=== PATIENT | female | born 1950 | race Caucasian/White ===

== ENCOUNTER → 2018-05-15 15:48 | Outpatient (CLI) | payer OTHER, SELFPAY ==
--- NOTE | 2018-05-15 | DI.MG.S_ITS ---
BILATERAL DIGITAL SCREENING MAMMOGRAM 3D/2D WITH CAD: 05/15/2018 CLINICAL: Routine screening. Comparison is made to exam dated: 04/02/2014 mammogram - [facility]. The tissue of both breasts is heterogeneously dense. This may lower the sensitivity of mammography. Current study was also evaluated with a Computer Aided Detection (CAD) system. No significant masses, calcifications, or other findings are seen in either breast. There has been no significant interval change. IMPRESSION: NEGATIVE There is no mammographic evidence of malignancy. A 1 year screening mammogram is recommended. This exam was interpreted at Station ID: [id number]. NOTE: For mammograms, a report in lay terms will be sent to the patient. Approximately 15% of breast malignancies will not be visualized mammographically. In the management of a palpable breast mass, a negative mammogram must not discourage biopsy of a clinically suspicious lesion. Electronically Signed By: Benton can/lindsey:05/16/2018 17:56:02 letter sent: Normal Exam ACR BI-RADS Category 1: Negative 3341F
== END ==
PROVIDERS: Family Provider Physician Assistant; PCP Physician Assistant; Visit Provider Family Medicine
DX: Z12.31 Encounter for screening mammogram for malignant neoplasm of breast (principal)
CPT/HCPCS: 77063; 77067

== ENCOUNTER → 2018-08-03 13:52 | Outpatient (CLI) | payer OTHER, SELFPAY ==
--- NOTE | 2018-08-03 13:54 | DI.MRI.S_ITS ---
PROCEDURE: MR SHOULDER RT WO CON INDICATIONS: RIGHT SHOULDER PAIN TECHNIQUE: Noncontrast oblique coronal T2 fast spin echo with fat saturation, oblique sagittal T1 spin echo and T2 fast spin echo with fat saturation, axial T1 spin echo and T2 fast spin echo with fat saturation through the shoulder. COMPARISON: None. FINDINGS: Image quality: Excellent. Rotator cuff: Partial thickness bursal sided tear involving the junction of the footplate and critical zone of the supraspinatus tendon image 9 series 10. There is also infraspinatus tendinopathy and partial thickness probably articular sided slitlike tear on image 9 series 10. Teres minor appears intact. Subscapularis tendinopathy with interstitial tearing and low-grade partial-thickness articular sided tear. No atrophy of the rotator cuff musculature although there is mild fatty infiltration of the subscapularis and infraspinatus muscles. Bones and bursae: No bone marrow contusions or fractures. Presumed degenerative cystic changes seen at the posterior aspect of the greater tuberosity and the base of the lesser tuberosity. Moderate acromioclavicular joint degeneration. The acromion demonstrates conventional anatomy, without an os acromiale. There is mild/moderate subacromial-subdeltoid fluid. Capsule and soft tissues: Posterior labrum demonstrates irregular appearance with possible intrasubstance T2 hyperintensity for example image 12 series 6. Of note, differential includes prominent posterior synovial fold and it is unclear if there is significant segmental glenoid rim degeneration and spurring (to suggest microinstability). Therefore, please correlate clinically. The long head of the biceps tendon demonstrates normal location and morphology. The rotator interval appears normal, without fibrosis. The coracohumeral ligament is normal in thickness. IMPRESSION: Supraspinatus tendinopathy with partial thickness bursal sided tear. Adjacent mild to moderate subacromial/subdeltoid bursitis. Infraspinatus tendinopathy with small slitlike partial-thickness articular sided tear. Subscapularis partial thickness articular sided tear, and interstitial tearing. Irregularity of the posterior labrum which could reflect posterior labral tear although technically indeterminate and the differential includes posterior synovial fold (anatomic variant). Please correlate with exam findings. Mild fatty infiltration of the subscapularis and infraspinatus muscles without definite atrophy. Dictated by: Bryan Mcintosh M.D. on 08/05/2018 at 8:50 Approved by: Bryan Mcintosh M.D. on 08/05/2018 at 8:58
== END ==
PROVIDERS: PCP Physician Assistant; Visit Provider Family Medicine
DX: M25.511 Pain in right shoulder (principal); M75.111 Incomplete rotator cuff tear or rupture of right shoulder, not specified as traumatic; M75.51 Bursitis of right shoulder
CPT/HCPCS: 73221

== ENCOUNTER → 2018-10-24 13:03 | Outpatient (CLI) | payer OTHER, SELFPAY | PROVIDERS: PCP Physician Assistant; Visit Provider Family Medicine | DX: Z13.820 Encounter for screening for osteoporosis (principal); M81.0 Age-related osteoporosis without current pathological fracture; Z78.0 Asymptomatic menopausal state; E07.9 Disorder of thyroid, unspecified; Z82.62 Family history of osteoporosis | CPT/HCPCS: 77080 ==

== ENCOUNTER → 2019-09-23 10:57 | Outpatient (CLI) | payer OTHER, SELFPAY ==
--- NOTE | 2019-09-23 | DI.RAD.S_ITS ---
PROCEDURE: XR ELBOW RT MIN 3V INDICATIONS: RIGHT ELBOW PAIN TECHNIQUE: 3 views of the elbow were acquired. COMPARISON: None. FINDINGS: Bones: No fractures or dislocations. No suspicious bony lesions. Soft tissues: No elbow joint effusion. No suspicious soft tissue calcifications. IMPRESSION: Right elbow without acute osseous abnormalities. No significant degenerative changes. Dictated by: Evaristo Vela M.D. on 09/23/2019 at 12:57 Approved by: Evaristo Vela M.D. on 09/23/2019 at 12:58
--- NOTE | 2019-09-23 | DI.RAD.S_ITS ---
PROCEDURE: XR CERVICAL SPINE 2V OR 3V INDICATIONS: RIGHT ELBOW PAIN TECHNIQUE: 3 view(s) of the cervical spine were acquired. COMPARISON: [facility], , C-SPINE WITHOUT CONTRAST, 12/22/2014, 12:19. FINDINGS: Bones: No acute fractures or dislocations to the T4 level. The lateral masses of C1 appear intact on the odontoid view. C1-C2 relationship is preserved. Straightening of cervical lordosis with mild grade 1 anterolisthesis C4 and C5 and mild grade 1 anterolisthesis of C7 on T1. Findings may be related to combination of patient positioning and moderate associated spondylitic changes. There is disc space narrowing throughout the cervical spine but most pronounced at C5-6 and C6-7. Degenerative endplate changes and endplate osteophyte formation is noted throughout the mid and lower cervical spine. Multilevel facet arthrosis also noted. No suspicious bony lesions. Soft tissues: No prevertebral soft tissue swelling. IMPRESSION: 1. Multilevel cervical spondylosis most pronounced at C5-6 and C6-7. No acute osseous abnormalities identified. 2. Mild anterolisthesis of C4 on C5 as well as C7 on T1 which is favored to represent combination of patient positioning and associated spondylitic changes. Dictated by: Evaristo Vela M.D. on 09/23/2019 at 12:46 Approved by: Evaristo Vela M.D. on 09/23/2019 at 12:55
--- NOTE | 2019-09-23 | DI.RAD.S_ITS ---
PROCEDURE: XR THORACIC SPINE 3V INDICATIONS: RIGHT ELBOW PAIN TECHNIQUE: 3 views of the thoracic spine were acquired. COMPARISON: None. FINDINGS: Bones: No fractures or dislocations. No suspicious bony lesions. 12 pairs of ribs are noted, and appear intact where visualized. Mild multilevel thoracic spine changes. No acute compression fracture of the vertebral bodies. Soft tissues: No paravertebral stripe thickening. IMPRESSION: Mild thoracic spondylosis. Dictated by: Evaristo Vela M.D. on 09/23/2019 at 12:56 Approved by: Evaristo Vela M.D. on 09/23/2019 at 12:56
== END ==
PROVIDERS: PCP Physician Assistant; Visit Provider Physician Assistant Medical
DX: M25.521 Pain in right elbow (principal); M47.22 Other spondylosis with radiculopathy, cervical region; M43.12 Spondylolisthesis, cervical region; M47.24 Other spondylosis with radiculopathy, thoracic region
CPT/HCPCS: 72040; 72072; 73080

== ENCOUNTER → 2020-04-28 12:48 | Outpatient (CLI) | payer MEDICARE, SELFPAY ==
--- NOTE | 2020-04-28 | DI.MG.S_ITS ---
BILATERAL DIGITAL SCREENING MAMMOGRAM 3D/2D WITH CAD: 04/28/2020 CLINICAL: Routine screening. Comparison is made to exams dated: 04/02/2014 [facility] The tissue of both breasts is heterogeneously dense. This may lower the sensitivity of mammography. Current study was also evaluated with a Computer Aided Detection (CAD) system. No significant masses, calcifications, or other findings are seen in either breast. There has been no significant interval change. IMPRESSION: NEGATIVE There is no mammographic evidence of malignancy. A 1 year screening mammogram is recommended. This exam was interpreted at Station ID: [id number]. NOTE: For mammograms, a report in lay terms will be sent to the patient. Approximately 15% of breast malignancies will not be visualized mammographically. In the management of a palpable breast mass, a negative mammogram must not discourage biopsy of a clinically suspicious lesion. Electronically Signed By: Evaristo valenzuela/lindsey:04/28/2020 17:00:08 letter sent: Normal Exam ACR BI-RADS Category 1: Negative 3341F
== END ==
PROVIDERS: PCP Physician Assistant; Referring Provider Physician Assistant; Visit Provider Physician Assistant
DX: Z12.31 Encounter for screening mammogram for malignant neoplasm of breast (principal)
CPT/HCPCS: 77063; 77067

== ENCOUNTER → 2020-12-09 12:22 | Outpatient (CLI) | payer MEDICARE, SELFPAY ==
--- NOTE | 2020-12-09 | DI.US.S_ITS ---
PROCEDURE: US SOFT TISSUE HEAD AND NECK INDICATIONS: Localized swelling, mass and lump OSTEOPOROSIS TECHNIQUE: Real-time scanning was performed of the neck region of interest, with image documentation. COMPARISON: None. FINDINGS: The patient reports palpable neck abnormality on the right having persisted over several months. In the current area of clinical concern, localized by the patient, there is a lymph node measuring 0.6 x 1.3 x 1.6 cm medial to the carotid artery. IMPRESSION: Normal size single lymph node identified as the cause of current patient clinical concern. This measures up to 6 x 13 x 16 mm. Dictated by: Kenrick Munoz M.D. on 12/09/2020 at 13:37 Approved by: Kenrick Munoz M.D. on 12/09/2020 at 13:38
== END ==
PROVIDERS: PCP Physician Assistant; Referring Provider Physician Assistant; Visit Provider Physician Assistant
DX: R22.1 Localized swelling, mass and lump, neck (principal); M81.0 Age-related osteoporosis without current pathological fracture; Z78.0 Asymptomatic menopausal state; E07.9 Disorder of thyroid, unspecified; Z82.62 Family history of osteoporosis
CPT/HCPCS: 76536; 77080

== ENCOUNTER → 2022-04-26 12:25 | Outpatient (CLI) | payer MEDICARE, SELFPAY ==
--- NOTE | 2022-04-26 12:26 | DI.US.S_ITS ---
PROCEDURE: US PELVIC COMPLETE INDICATIONS: POSTMENOPAUSAL BLEEDING TECHNIQUE: Real-time transvaginal scanning was performed of the pelvic organs, with image documentation. COMPARISON: None. FINDINGS: Uterus: Uterus is neutral in position and normal in size at 5.0 x 3.5 x 2.2 cm. The myometrium is homogeneous. The endometrium measures 10 mm combined thickness. Possible mass versus complex nabothian cyst involving the cervix measuring 1.3 cm. Ovaries: Normal right ovary measuring 1.8 x 1.2 x 1.8 cm. Left ovary is been removed. Other: No pathologic free abdominal or pelvic fluid. IMPRESSION: 1. Abnormal thickened endometrial complex measuring 10 mm. Endometrial biopsy is recommended. 2. Possible mass versus complex nabothian cyst within the cervix measuring 1.3 cm. 6 week follow-up ultrasound is recommended to assess for interval changes and/or resolution. We strive to produce accurate, complete, and clear reports of imaging services. To assist us in improving patient care, this report was composed using standard report templates and voice recognition software. Therefore, it may contain abnormal punctuation, insertions and/or omissions. Occasional wrong-word or sound-alike substitutions may occur. Though we review the report and make efforts to correct it, we do recommend that the report be read carefully in proper context to recognize any text inaccuracies. Dictated by: Raleigh MUNIZ Interpreted: Kei Rios MD on 04/26/2022 at 17:01 Transcribed by: NAVA on 04/26/2022 at 17:03 Approved by: Kei Rios M.D. on 04/26/2022 at 17:24
== END ==
PROVIDERS: PCP Physician Assistant; Referring Provider Obstetrics & Gynecology; Visit Provider Obstetrics & Gynecology
DX: N95.0 Postmenopausal bleeding (principal); R93.89 Abnormal findings on diagnostic imaging of other specified body structures
CPT/HCPCS: 76830; 76856

== ENCOUNTER → 2022-05-16 10:05 | Outpatient (CLI) | payer MEDICARE, SELFPAY ==
[2022-05-16 20:07] LABS: Add Manual Diff / Slide Review NO; Basophils Absolute Auto 0 /uL (0-100); Basophils Percent Auto 0.7 % (0-2); Eosinophils Absolute Auto 100 /uL (0-450); Eosinophils Percent Auto 1.3 % (2-4); Hematocrit 38.7 % (36-46); Hemoglobin 13.3 g/dL (12.0-16.0); Lymphocytes Absolute Auto 1600 /uL (1100-4500); Lymphocytes Percent Auto 23.4 % (25-40); Mean Corpuscular HGB Conc 34.3 % (30-36); Mean Corpuscular Hemoglobin 33.4 PG (26-34); Mean Corpuscular Volume 97.5 fL (80-100); Monocytes Absolute Auto 600 /uL (0-900); Monocytes Percent Auto 8.7 % (3-14); Neutrophils Absolute Auto 4600 /uL (1500-7000); Neutrophils Percent Auto 65.9 % (50-75); Platelet Count 273 X10^3/uL (150-400); Red Blood Cell Count 3.97 X10^6/uL (4.0-5.2); Red Cell Distribution Width 13.6 % (11.6-14.8); White Blood Cell Count 6.9 X10^3/uL (4.5-11.0)
[2022-05-16 20:14] LABS: Alanine Aminotransferase 20 IU/L (<35); Albumin 3.9 g/dL (3.5-5.0); Albumin Globulin Ratio 1.9 (1.0-2.8); Alkaline Phosphatase 53 U/L (38-126); Aspartate Aminotransferase 34 IU/L (14-36); BUN Creatinine Ratio 13.7 (6-22); Bilirubin Total 0.5 mg/dL (0.2-1.3); Blood Urea Nitrogen 13 mg/dL (7-17); Calcium 9.2 mg/dL (8.4-10.2); Carbon Dioxide 26 mmol/L (22-32); Chloride 104 mmol/L (98-107); Cholesterol 197 mg/dL (140-199); Estimated Glomerular Filt Rate > 60 mL/min (>60); Globulin 2.1 g/dL (1.7-4.1); Glucose 84 mg/dL (80-110); HDL Cholesterol 94 mg/dL (40-60); HEMOLYSIS < 15 (0-50); LDL Cholesterol Calculated 94 mg/dL (<100); Potassium 4.2 mmol/L (3.4-5.1); Sodium 136 mmol/L (137-145); Triglycerides 43 mg/dL (35-150)
[2022-05-16 20:42] LABS: TSH w/ Reflex to FT4 0.93 uIU/mL (0.47-4.68)
== END ==
PROVIDERS: PCP Physician Assistant; Visit Provider Physician Assistant
DX: E03.9 Hypothyroidism, unspecified (principal); E78.00 Pure hypercholesterolemia, unspecified; Z79.899 Other long term (current) drug therapy
CPT/HCPCS: 80053; 80061; 84443; 85025

== ENCOUNTER → 2022-05-29 13:20 | Outpatient (CLI) | payer MEDICARE, SELFPAY ==
[2022-05-29 14:00] LABS: COVID19 -Nasal RAPID Negative (Negative)
== END ==
PROVIDERS: PCP Physician Assistant; Visit Provider Surgery
DX: Z01.812 Encounter for preprocedural laboratory examination (principal); Z20.822 Contact with and (suspected) exposure to COVID-19
CPT/HCPCS: 87635

== ENCOUNTER 2022-05-29 13:23 | Day surgery (SDC) | payer MEDICARE, SELFPAY ==
[2022-05-29] VITALS (7 sets, daily range): BP systolic 114–134; BP diastolic 61–80; PULSE 50–62; RESP 10–18; TEMP 36.8–37; O2SAT 97–100; BMI 20.2
--- NOTE | 2022-05-29 | PATH_ITS ---
[facility] Accession Number: [id number] . 01 Material submitted: . endometrium - ENDOMETRIAL CURETTINGS . 01 Diagnosis: Endometrium, Curettage: Scant superficial fragments of inactive endometrium with breakdown changes. Negative for significant atypia and malignancy. MRV 06/01/2022 1459 Local . 01 Electronically signed: . Giovana Valadez MD, Pathologist NPI- [id number] . 01 Gross description: . ENDOMETRIAL CURETTINGS: Received in formalin are minute fragments of mucoid and hemorrhagic material measuring 2.0 x 0.1 x 0.1 cm in aggregate. Submitted in toto in 1 cassette. /CPE 05/30/2022 0504 Local . 01 Pathologist provided ICD-10: N95.0 . 01 CPT . 110394 Specimen Comment: A courtesy copy of this report has been sent to [facility] Pathology Performed at: 01 [facility] [address] [place] [address], [place], [place] [id number] MD Dorian Pedraza MD Phone: [phone]
[2022-05-29] MEDS: LACTATED RINGERS 1,000 ML 42 ML IV (14:30)
--- NOTE | 2022-05-29 15:40 | SUR.OPER ---
Lithotomy on padded OR bed, head on pillow, arms secured on padded arm boards at <90 degrees abduction. Legs secured in padded yellow fins stirrups.
--- NOTE | 2022-05-29 16:06 | P.HPOB_ITS ---
History of Present Illness History of Present Illness Reason for admission: other (Postmenopausal bleeding) Narrative: Laura Sevilla is a 71 [place] [address] Gynecology Visit Signed Patient: Laura Sevilla MR#: [id number] : 1950 Acct:[id number] Age/Sex: 71 / F Date of Service:?04/26/22 Loc: [facility]? 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 Bleeding has subsided, but cramping remains. Tobacco Status Smoking Status: Never smoker Last Menstural Cycle & Details Other Menstrual Period: Postmenopausal Allergies No Known Drug Allergies Allergy (Verified 04/26/22 11:19) Medications albuterol sulfate 90 mcg/actuation aerosol inhaler (Ventolin HFA) 2 puff inhalation Q6H PRN 03/24/21 [History Confirmed 04/26/22] estradiol 0.01% (0.1 mg/gram) vaginal cream (Estrace) 1 g vaginal 2XW 03/24/21 [History Confirmed 04/26/22] dextroamphetamine-amphetamine 5 mg tablet (Adderall) 5 mg PO DAILY 10/28/21 [History Confirmed 04/26/22] bupropion HCl 150 mg 24 hr tablet, extended release See Rx Instructions .Route .COMPLEX #30 tabs 01/06/22 [Rx Confirmed 04/26/22] levothyroxine 25 mcg tablet See Rx Instructions .Route .COMPLEX #30 tabs 01/06/22 [Rx Confirmed 04/26/22] estradiol 1 mg tablet 0.5 mg PO .twice weekly 04/26/22 [History Confirmed 04/26/22] Vitals ? 04/26/2211:25 Height 5 ft 3 in Weight 114 lb 7 oz BMI 20.2 BP 128/66 Blood Pressure Location Rt brachial Position Sitting Respiration 16 Pulse 54 L Pulse Source Monitor Pulse Oximetry (%) 98 Oxygen Delivery Method room air HPI Chief Complaint Chief Complaint: Postmenopausal bleeding HPI Details: 71-year-old female presents for postmenopausal bleeding. Five days ago she had some bright red vaginal spotting, the next day it increased to some light bleeding, needing a panty liner for the blood.? Bleeding was accompanied by cramping at that time.? She has continued with some light cramping. 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 No history of abnormal Pap smear. History of unilateral salpingo oophorectomy for ectopic , through lower abdominal incision ON LICENSE OF [facility] Medical History (Updated 05/17/22 @ 17:12 by Roseline Herrera PA-C) Abnormal chest xray (~1960) Actinic keratosis ADHD Allergies Anemia (~1974) Nobles's esophagus Chicken pox Depression Eczema Femur fracture (~1979) Foot pain (~2017) GERD (gastroesophageal reflux disease) Greater trochanteric bursitis of left hip Headache Hemorrhoid Herpes History of basal cell carcinoma History of ectopic Measles Osteoarthritis (~2011) Osteopenia (~2017) PTSD (post-traumatic stress disorder) Sleep apnea (~2016) Surgical History (Updated 05/14/22 @ 21:24 by Milvia Saini) Anesthesia History of appendectomy History of foot surgery (~2018) History of hand surgery History of thoracic surgery S/P unilateral salpingo-oophorectomy Family History (Updated 05/14/22 @ 21:28 by Milvia Saini) Father History of heart disease Mental health problem Mother History of heart disease Brother Prostate cancer Multiple sclerosis Hyperlipidemia Alcoholism Depression Drug addiction Mental health problem Melanoma Grandmother History of heart disease Grandfather Appendicitis Social History household members: significant other Smoking Status: Never smoker alcohol intake: current Meds Home Medications and Allergies Home Medications Medication Instructions Recorded Confirmed Type estradiol 0.01% (0.1 mg/gram) 1 g vaginal 2XW 03/24/21 05/29/22 History vaginal cream (Estrace) dextroamphetamine-amphetamine 5 mg 5 mg PO DAILY PRN ADHD 10/28/21 05/29/22 His tory tablet (Adderall) hydrocodone 5 mg-acetaminophen 325 0.5 tab PO Q8H PRN pain #10 tabs 05/23/22 05/29/22 Rx mg tablet bupropion HCl 150 mg 24 hr tablet, 150 mg PO DAILY 05/29/22 05/29/22 History extended release levothyroxine 25 mcg tablet 25 mcg PO DAILY 05/29/22 05/29/22 History Allergies Allergy/AdvReac Type Severity Reaction Status Date / Time No Known Drug Allergies Allergy Verified 05/29/22 13:55 Exam Vital Signs (past 8 hours): - 05/29/22 14:24 Temperature 98.2 F Pulse Rate 58 L Respiratory Rate 18 Blood Pressure 119/72 Pulse Oximetry 97 Oxygen Delivery Method Room Air Oxygen Delivery Method Room Air Assessment & Plan Time Spent With Patient Critical Care time: I spent a total of [] minutes of critical care time on this patient's care today; this time is exclusive of procedural time.
--- NOTE | 2022-05-29 16:07 | P.HPOB_ITS ---
History of Present Illness History of Present Illness Narrative: Laura Sevilla is a 71 year old female Laura Sevilla is a 71 yo female being admitted for D&C, hysteroscopy for further evaluation of postmenopausal bleeding. She had some bright red vaginal spotting, then next day some light bleeding. No further bleeding after that, but she has continued with uterine type cramping. Office endometrial biopsy was unsuccessful due to a stenotic cervix. Ultrasound showed a 10 mm endometrium, thus I recommended further evaluation with D and C, hysteroscopy. 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 No history of abnormal Pap smear. History of unilateral salpingo oophorectomy for ectopic , through lower abdominal incision [facility] Medical History (Updated 05/29/22 @ 16:11 by Trini Mclaughlin MD) Abnormal chest xray (~1960) Actinic keratosis ADHD Allergies Anemia (~1974) Nobles's esophagus Chicken pox Depression Eczema Femur fracture (~1979) Foot pain (~2017) GERD (gastroesophageal reflux disease) Greater trochanteric bursitis of left hip Headache Hemorrhoid Herpes History of basal cell carcinoma History of ectopic Measles Osteoarthritis (~2011) Osteopenia (~2018) PTSD (post-traumatic stress disorder) Sleep apnea (~2016) Surgical History (Updated 05/14/22 @ 21:24 by Milvia Saini) Anesthesia History of appendectomy History of foot surgery (~2018) History of hand surgery History of thoracic surgery S/P unilateral salpingo-oophorectomy Family History (Updated 05/14/22 @ 21:28 by Milvia Saini) Father History of heart disease Mental health problem Mother History of heart disease Brother Prostate cancer Multiple sclerosis Hyperlipidemia Alcoholism Depression Drug addiction Mental health problem Melanoma Grandmother History of heart disease Grandfather Appendicitis Social History household members: significant other Smoking Status: Never smoker alcohol intake: current Meds Home Medications and Allergies Home Medications Medication Instructions Recorded Confirmed Type estradiol 0.01% (0.1 mg/gram) 1 g vaginal 2XW 03/24/21 05/29/22 History vaginal cream (Estrace) dextroamphetamine-amphetamine 5 mg 5 mg PO DAILY PRN ADHD 10/28/21 05/29/22 History tablet (Adderall) hydrocodone 5 mg-acetaminophen 325 0.5 tab PO Q8H PRN pain #10 tabs 05/23/22 05/29/22 Rx mg tablet bupropion HCl 150 mg 24 hr tablet, 150 mg PO DAILY 05/29/22 05/29/22 History extended release levothyroxine 25 mcg tablet 25 mcg PO DAILY 05/29/22 05/29/22 History Allergies Allergy/AdvReac Type Severity Reaction Status Date / Time No Known Drug Allergies Allergy Verified 05/29/22 13:55 Exam Vital Signs (past 8 hours): - 05/29/22 14:24 Temperature 98.2 F Pulse Rate 58 L Respiratory Rate 18 Blood Pressure 119/72 Pulse Oximetry 97 Oxygen Delivery Method Room Air Oxygen Delivery Method Room Air Const General: cooperative, healthy appearing and comfortable Nutritional Appearance: average body habitus Orientation: alert, awake and oriented x3 HENMT Head: normal to inspection Neck Neck: normal visual inspection Resp Effort & Inspection: normal respiratory effort Cardio Rate: regular rate Assessment & Plan Assessment and plan (1) Pre-op exam: Status: Acute (2) Postmenopausal bleeding: Status: Acute Assessment & Plan narrative: Medical history, allergies and medications reviewed. Procedure reviewed, discuss dilatation curettage, hysteroscopy, possible removal of any visualized endometrial polyps. Also possible resection of a small submucosal fibroid, but discussed if large fibroid visible, she has not had any recurrent bleeding, not worth anesthesia time for a large resection of a submucosal fibroid since typically benign, procedures more diagnostic without having recurrent bleeding. Surgical risks of the procedure reviewed including bleeding, infection, uterine perforation with risk of injury to adjacent organs including bowel bladder. Verbal and written consent obtained. COVID-19 COVID-19 status: Negative Result date/Date tested (Pos, Neg/Pending): 05/29/22 Time Spent With Patient Critical Care time: I spent a total of [] minutes of critical care time on this patient's care today; this time is exclusive of procedural time.
[2022-05-29] MEDS: SILVER NITRATE STICK 2 EACH TOP (17:03)
[2022-05-29] MEDS: OXYCODONE IR 5 MG TABLET PO (17:40)
--- NOTE | 2022-05-29 17:48 | PM.OP.1 ---
Operative Date/Time/Diagnoses Date of procedure: 05/29/22 Time of procedure: 16:30 Pre-op diagnosis: Postmenopausal bleeding. Thickened endometrium on ultrasound. Post-op diagnosis: same (Postmenopausal bleeding. Normal atrophic appearing endometrium.) Procedure & Clinicians Procedure: Dilatation and curettage, hysteroscopy Same procedure as scheduled: Yes Indications: 71-year-old female with episode of postmenopausal bleeding, which resolved. She has continued with uterine cramping however. Pelvic ultrasound showed a 10 mm endometrium. Attempted office EMB unsuccessful due to stenotic cervix. Surgeon: Trini Mclaughlin Click Yes if Unassisted: Yes Anesthesia Type: General Operative Notes Findings: Stenotic cervix, dilated. Normal endocervical canal. Small uterine cavity. Atrophic appearing endometrium, slight scarred appearing near fundus. No polyps. No submucosal fibroids. No abnormal appearing endometrium. Closure Type: not applicable Specimen(s): other (endometrial currettings) Estimated Blood Loss (mL): 3 Blood products transfused: none Procedure in detail: She was taken to the operating room. After an adequate level anesthesia was obtained, she was prepped and draped in the usual sterile fashion. Time out was taken and the patient and the procedure was identified. A speculum was inserted into the vagina and the cervix was grasped with a tenaculum. The cervical os was very small. The small gold handle dilators were used and the smallest dilator, was able to be passed through the cervical os with some mild pressure. Using the small dilators, then subsequently the Bautista dilators, the cervical os was then gradually serially dilated. The internal os was somewhat tight but was able to be gradually dilated, just enough to accommodate the small diagnostic hysteroscope. The uterus sounded to 7 cm. A diagnostic hysteroscope was inserted with NSS used as a uterine distention medium. On inspection with the hysteroscope, the above findings were noted of atrophic endometrium. In the lower uterine segment, to her left of midline, there was a small indent in the endometrium, consistent with small false channel. No perforation on inspection with the hysteroscope. The hysteroscope was removed and a dilation and curettage performed with removal of a very small amount of tissue, consistent with atrophic appearance. The endometrial Pipelle was used as well to obtain the sample. The sample was placed on Telfa and sent for pathology as endometrial curettings. The tenaculum were removed. Some silver nitrate was placed to 1 tenaculum site for some light bleeding and hemostasis obtained. There was good hemostasis at the cervical os. With hemostasis noted the speculum removed and the procedure was ended. The patient was transferred to the PACU in stable condition. Complications: none Post-operative Condition: stable Disposition: PACU
--- NOTE | 2022-05-29 18:17 | SUR.PHASEII ---
Pt A&Ox4, reports pain as tolerable, VSS, bianca-pad C/D/I, and ready to discharge home. Discharge instructions reviewed with patient and time allowed for questions. IV DC'd intact, dressing placed. Pt left unit in stable condition via w/c with this RN assist to ER entrance where spouse was waiting to transport pt home.
== END 2022-05-29 18:19 | disposition home or self-care (01) ==
PROVIDERS: PCP Physician Assistant; Referring Provider Obstetrics & Gynecology; Visit Provider Obstetrics & Gynecology
PROC: 0UDB8ZZ Extraction of Endometrium, Via Natural or Artificial Opening Endoscopic (ICD-10-PCS; CPT 58558; principal; 2022-05-29 14:45)
DX: N95.0 Postmenopausal bleeding (principal); G47.33 Obstructive sleep apnea (adult) (pediatric); K21.9 Gastro-esophageal reflux disease without esophagitis; E03.9 Hypothyroidism, unspecified; Z20.822 Contact with and (suspected) exposure to COVID-19; N88.2 Stricture and stenosis of cervix uteri
CPT/HCPCS: 58558; 82962; 87635; C9803; J1100; J1885; J2250; J2704; J3010

== ENCOUNTER → 2022-08-28 11:37 | Outpatient (CLI) | payer MEDICARE, SELFPAY ==
[2022-08-28 19:08] LABS: Add Manual Diff / Slide Review NO; Basophils Absolute Auto 100 /uL (0-100); Basophils Percent Auto 0.9 % (0-2); Eosinophils Absolute Auto 100 /uL (0-450); Eosinophils Percent Auto 2.1 % (2-4); Hematocrit 39.2 % (36-46); Hemoglobin 13.5 g/dL (12.0-16.0); Lymphocytes Absolute Auto 1600 /uL (1100-4500); Lymphocytes Percent Auto 23.9 % (25-40); Mean Corpuscular HGB Conc 34.4 % (30-36); Mean Corpuscular Hemoglobin 33.9 PG (26-34); Mean Corpuscular Volume 98.6 fL (80-100); Monocytes Absolute Auto 600 /uL (0-900); Monocytes Percent Auto 8.9 % (3-14); Neutrophils Absolute Auto 4300 /uL (1500-7000); Neutrophils Percent Auto 64.2 % (50-75); Platelet Count 271 X10^3/uL (150-400); Red Blood Cell Count 3.97 X10^6/uL (4.0-5.2); Red Cell Distribution Width 12.7 % (11.6-14.8); White Blood Cell Count 6.8 X10^3/uL (4.5-11.0)
[2022-08-28 19:39] LABS: Alanine Aminotransferase 23 IU/L (<35); Albumin 3.9 g/dL (3.5-5.0); Albumin Globulin Ratio 1.4 (1.0-2.8); Alkaline Phosphatase 79 U/L (38-126); Aspartate Aminotransferase 33 IU/L (14-36); BUN Creatinine Ratio 15.7 (6-22); Bilirubin Total 0.2 mg/dL (0.2-1.3); Blood Urea Nitrogen 13 mg/dL (7-17); Calcium 8.8 mg/dL (8.4-10.2); Carbon Dioxide 29 mmol/L (22-32); Chloride 100 mmol/L (98-107); Estimated Glomerular Filt Rate > 60 mL/min (>60); Globulin 2.8 g/dL (1.7-4.1); Glucose 94 mg/dL (80-110); HEMOLYSIS < 15 (0-50); Sodium 137 mmol/L (137-145); Total Protein 6.7 g/dL (6.3-8.2)
[2022-08-28 20:29] LABS: Hep C Virus Ab w/Reflex Quant NEGATIVE s/c (NEGATIVE)
== END ==
PROVIDERS: PCP Physician Assistant; Visit Provider Physician Assistant
DX: Z11.59 Encounter for screening for other viral diseases (principal); N95.0 Postmenopausal bleeding; R79.89 Other specified abnormal findings of blood chemistry
CPT/HCPCS: 80053; 85025; 86803

== ENCOUNTER 2022-12-28 08:36 | Day surgery (SDC) | payer MEDICARE, SELFPAY ==
[2022-12-26 09:36] VITALS: BMI 21.0
[2022-12-28] VITALS (10 sets, daily range): BP systolic 89–123; BP diastolic 47–83; PULSE 54–98; RESP 9–18; TEMP 36.2–36.8; O2SAT 93–100; BMI 21.0
--- NOTE | 2022-12-28 | PATH_ITS ---
[facility] Accession Number: [id number] No. of containers..01 Tissue . 01 Material submitted: . uterus - UTERUS, BILATERAL OVARIES AND LEFT FALLOPIAN TUBE . 01 Diagnosis: Uterus, Bilateral Ovaries, and Left Fallopian Tube, Supracervical Hysterectomy, Bilateral Oophorectomy, and Left Salpingectomy: Myometrium with focal adenomyosis. Nonproliferative endometrium with focal features of polyp. Fallopian tube within normal limits. Bilateral ovaries with atrophic changes. No evidence of neoplasia or malignancy. MRV 01/04/2023 1108 Local . 01 Electronically signed: . Tari Gallo MD, Pathologist NPI- [id number] . 01 Gross description: . The specimen is received in formalin labeled with the patient's name, , and uterus, bilat ovaries, left fallopian tube, and consists of a uterus previously opened on the posterior surface (20 g, 3.2 cm SI, 4.5 cm ML, 2.2 cm AP) with no attached cervix, a presumed left fallopian tube per the requisition (5.8 x 0.7 cm) and attached left ovary (2.5 x 0.7 x 0.5 cm, 2 g), and right ovary (1.6 x 1.1 x 0.7 cm, 2 g) with no right tube or additional adnexa. The lower uterine segment margin is inked blue. The serosa is sheppard and relatively smooth with an area of defect on the anterior surface possibly consistent with surgical defect, measuring 1.1 cm in greatest dimension. The endometrial cavity measures approximately 1.5 cm from cornu to cornu and 2.3 cm in length. No endocervical canal is identified. No polyps or lesions are identified. The myometrium is sheppard and trabecular and measures up to 1.2 cm in maximum thickness with no nodules or lesions identified. The left fallopian tube has sheppard, smooth serosa and is grossly discontinuous with no cystic structures identified. Sectioning reveals an unremarkable, discontinuous stellate lumen. The left ovary has a sheppard, cerebriform external surface. Sectioning reveals an unremarkable, physiologic cut surface with no cysts or lesions identified. The right ovary has a sheppard, cerebriform external surface. Sectioning reveals unremarkable physiologic cut surface with no lesions or cysts identified. Infirmary Attendant sections are submitted as follows: A1: Infirmary Attendant perpendicular margin. A2-A3: Full-thickness anterior and posterior cross section. A4: Left fallopian tube to include one-half of bisected fimbriae and cross sections. A5: Infirmary Attendant left ovary. A6: Infirmary Attendant right ovary. ([id number]) /FRR 12/30/2022 [facility] Local . 01 Pathologist provided ICD-10: R10.2 . 01 CPT . 739477 Specimen Comment: A courtesy copy of this report has been sent to [phone] Performed at: 01 [facility] [address] [place] [address], [place], [place] [id number] MD Dorian Pedraza MD Phone: [phone]
[2022-12-28 09:05] LABS: COVID19 -Nasal RAPID Negative (Negative)
[2022-12-28] MEDS: ACETAMINOPHEN IV 1,000 MG/100 ML VIAL 400 MG IV (09:43)
[2022-12-28] MEDS: LACTATED RINGERS 1,000 ML 42 ML IV ×2 (09:43→13:15)
--- NOTE | 2022-12-28 10:59 | P.HPOB_ITS ---
History of Present Illness History of Present Illness Reason for admission: vaginal bleeding and pelvic pain Narrative: Laura Sevilla is a 72 year old female 3 para 2 who presents for a laparoscopic supracervical hysterectomy with bilateral oophorectomy, and removal of remaining tube. [facility] Medical History (Updated 12/26/22 @ 09:39 by Thao Mccracken RN) Abnormal chest xray (~1960) Actinic keratosis ADHD Anemia (~1974) Anesthesia complication Nobles's esophagus Chicken pox COVID-19 virus infection (10/10/22) Depression Eczema Femur fracture (~1979) GERD (gastroesophageal reflux disease) Greater trochanteric bursitis of left hip Headache Hemorrhoid Herpes History of basal cell carcinoma History of ectopic Measles Osteoarthritis (~2011) Osteopenia (~2017) PTSD (post-traumatic stress disorder) Sleep apnea (~2016) Surgical History Anesthesia History of appendectomy History of foot surgery (~2017) History of hand surgery History of thoracic surgery S/P unilateral salpingo-oophorectomy Family History Father History of heart disease Mental health problem Mother History of heart disease Brother Prostate cancer Multiple sclerosis Hyperlipidemia Alcoholism Depression Drug addiction Mental health problem Melanoma Grandmother History of heart disease Grandfather Appendicitis Social History household members: significant other Smoking Status: Never smoker alcohol intake: current Meds Home Medications and Allergies Home Medications Medication Instructions Recorded Confirmed Type estradiol 0.01% (0.1 mg/gram) 1 g vaginal 2XW 03/24/21 11/02/22 History vaginal cream (Estrace) levothyroxine 25 mcg tablet See Rx Instructions .Route 12/20/22 12/28/22 Rx .COMPLEX #90 tabs Allergies Allergy/AdvReac Type Severity Reaction Status Date / Time No Known Drug Allergies Allergy Verified 12/28/22 08:57 Exam Vital Signs (past 8 hours): - 12/28/22 09:03 Temperature 97.2 F L Pulse Rate 98 H Respiratory Rate 16 Blood Pressure 123/67 Pulse Oximetry 98 Oxygen Delivery Method Room Air Oxygen Delivery Method Room Air Narrative Exam Narrative: HEENT: No thyromegaly, no anterior cervical or supraclavicular lymphadenopathy. Lungs:Clear to auscultation bilaterally, no wheezes. Cardiovascular: Regular rate and rhythm, no murmurs, rubs, or gallops. Abdomen: Multiple well-healed scars scars. No hepatosplenomegaly. No masses palpable. External genitalia: Atrophic Vagina: Atrophic Cervix: Parous, atrophic Bimanual exam: 5 Week size uterus. Mobile. No adnexal masses or tenderness Extremities: No edema Objective Labs Labs: Laboratory Results - last 24 hr 12/28/22 08:45 SARS-CoV-2 (PCR) Negative Assessment & Plan Assessment & Plan narrative: Assessment: 72-year-old 3 para 2 with pelvic pain and abnormal uterine bleeding Negative endometrial biopsy Plan: Laparoscopic supracervical hysterectomy with removal of both ovaries, and removal of remaining tube The risks, benefits, and alternatives to the procedure were explained to the patient. The risks including bleeding, infection, injury to the bowel, bladder, or ureters. She also understands that there is a possibility of an open procedure. She understands all of these risks and agrees to proceed. A full par Q was held and consent form was signed. Time Spent With Patient Time with patient: less than 30 minutes Critical Care time: I spent a total of [] minutes of critical care time on this patient's care today; this time is exclusive of procedural time.
--- NOTE | 2022-12-28 11:03 | PM.PREOP ---
Pre-operative Note COVID-19 Criteria for continued procedure: Non-surgical alternatives not available or appropriate per current SOC Interval Note History & Physical reviewed/Exam performed by Physician: Yes Changes to H&P: No H&P completed within 30 days and has changed as indicated here:: 12/28/22
[2022-12-28] MEDS: CEFAZOLIN 2 GM/100 ML PREMIX 100 ML IV (11:45)
--- NOTE | 2022-12-28 12:06 | SUR.OPER ---
Lithotomy on padded OR bed. [place] Pad Positioner under torso. Head on pillow, arms padded and tucked at sides. Legs secured in padded yellow fins stirrups.
[2022-12-28] MEDS: BUPIVACAINE 0.25% (PF) VIAL 20 ML INJ (12:31)
--- NOTE | 2022-12-28 13:06 | PM.GYNOP.1 ---
Operative Date/Time/Diagnoses Date of procedure: 12/28/22 Time of procedure: 13:06 Pre-op diagnosis: Pelvic pain Abnormal uterine bleeding Post-op diagnosis: same Procedure & Clinicians Procedure: Procedures Operation Date: 12/28/22 09:45 Actual Procedure Side Surgeon p Laparoscopic Supracervical Hysterectomy w/ bilateral oophorectomy w. removal of left tube Gracie Holt MD Indications: Pelvic pain Abnormal uterine bleeding Surgeon: Gracie Holt Industrial Economist: Emma Giraldo Anesthesia Type: General and Local Operative Notes Findings: 5 wk size anteverted uterus Normal ovaries bilaterally Normal left tube Only fimbria of right tube remaining Normal liver and gallbladder Appendix previously removed Closure Type: primary Specimen(s): left tube & ovary, uterus and other (right ovary and fimbria of right tube) Applied: catheter (Removed at the end of the case) Estimated blood loss (mL): 20 Blood products transfused: none Procedure in detail: The patient was taken to the operating room where she was placed in the dorsal supine position. After adequate general endotracheal anesthesia was achieved, she was placed in the dorsal lithotomy position, and prepped and draped in the usual sterile fashion. A time-out was performed. A bivalve speculum was placed into the vagina and the anterior lip of the cervix was grasped with a single-tooth tenaculum. The cervical os was sequentially dilated until the Zumi uterine manipulator could pass easily into the endometrial cavity. The single-tooth tenaculum was removed from the anterior lip of the cervix. The bivalve speculum was removed from the vagina. Attention was then turned to the abdomen where 6 cc of 0.5% Marcaine with epinephrine were injected in the umbilical fold. A 5 mm incision was made. The Veress needle was placed into the peritoneal cavity, and its placement confirmed by aspiration and drop test. The abdominal cavity was insufflated with 4 L of CO2. The Veress needle was removed, and a 5 mm trocar was placed without difficulty. Initial inspection of the abdomen and pelvis revealed the findings noted above. Two other 5 mm incisions were made 4 cm lateral to the midline at the level of the umbilicus after 6 cc of 0.5% Marcaine with epinephrine were injected. The right ovary and fimbria of right tube were grasped with an atraumatic grasper. Using the power seal the infundibulopelvic ligament on the right side was cauterized and cut. The round ligament and broad ligament were cauterized and cut with the power seal. The bladder flap was created using the power seal on the right side [facility]. The uterine arteries on the right side were cauterized and cut with the power seal. All of this was repeated on the patient's left side. The remainder of the bladder flap was created with the power seal, and the bladder was taken down off the lower uterine segment and cervix. The uterine arteries on the left side were cauterized and cut with the power seal. The Zumi uterine manipulator was removed from the uterus, and a moistened sponge stick placed into the vagina. Using the Josselin loop, the uterus was amputated from the cervix 2 cm above the uterosacral ligament. There was no bleeding noted. 6 cc of 0.5% Marcaine with epinephrine were injected above the pubic symphysis. A 12 mm incision was made. A 12 mm trocar was placed under direct visualization. A large endobag was placed through the suprapubic trocar. The uterus, bilateral ovaries, left tube, and fimbria of the right tube were placed into the bag. The trocar was removed. The edges of the bag were brought up through the skin. The uterus was grasped with a Lan. An Dano was placed into the bag. The uterus, ovaries, tubes were morcellated in 7 pieces. The endobag with the Dano were removed from the peritoneal cavity. The suprapubic incision was closed with 0 Vicryl in a running fashion. The abdomen was re-insufflated with carbon dioxide gas. The pelvis was copiously irrigated with warm normal saline. There was no bleeding noted. The instruments were removed from the abdomen. The CO2 was allowed to escape. All of the incisions were closed with 4-0 Monocryl in a subcuticular fashion. Steri-Strips and Allevyn dressings were placed. The moistened sponge stick was removed from the vagina. Sponge, lap, and instrument counts were correct x2. The patient tolerated the procedure well, and was taken to PACU in stable condition. Complications: none Post-operative Condition: stable Disposition: PACU Plan for aftercare: Home after recovery
[2022-12-28] MEDS: OXYCODONE IR 5 MG TABLET PO (14:05)
[2022-12-28] MEDS: ONDANSETRON 4 MG/2 ML INJ IV (14:06)
== END 2022-12-28 14:59 | disposition home or self-care (01) ==
LOC: OR 08:37 → AC 09:19
PROVIDERS: PCP Physician Assistant; Referring Provider Obstetrics & Gynecology; Visit Provider Obstetrics & Gynecology
PROC: 0UT94ZL Resection of Uterus, Supracervical, Percutaneous Endoscopic Approach (ICD-10-PCS; CPT 58542; principal; 2022-12-28 09:45)
DX: N93.9 Abnormal uterine and vaginal bleeding, unspecified (principal); Z20.822 Contact with and (suspected) exposure to COVID-19; N80.03 Adenomyosis of the uterus
CPT/HCPCS: 58542; 87635; C9803; J0131; J0690; J1100; J1885; J2250; J2405; J2704; J3010; J3490

== ENCOUNTER → 2023-02-05 16:11 | Outpatient (CLI) | payer MEDICARE, SELFPAY ==
--- NOTE | 2023-02-05 16:12 | DI.MG.S_ITS ---
BILATERAL DIGITAL SCREENING MAMMOGRAM 3D/2D WITH CAD: 02/05/2023 CLINICAL: Routine screening. Comparison is made to exams dated: 04/28/2020 mammogram, 05/15/2018 mammogram - [facility], and 04/02/2014 mammogram - [facility]. Both breasts are heterogeneously dense, which may obscure small masses (category c / 51-75% glandular tissue). Current study was also evaluated with a Computer Aided Detection (CAD) system. No significant masses, calcifications, or other findings are seen in either breast. There has been no significant interval change. IMPRESSION: NEGATIVE There is no mammographic evidence of malignancy. A 1 year screening mammogram is recommended. Based on the Tyrer Cuzick model (a risk assessment model) the patient's lifetime risk is 5.5% and her 10 year risk is 4.1%. According to the ACR, ACS, and NCCN guidelines, an annual breast MRI exam along with mammogram is recommended if the patient's lifetime risk is 20% or greater. This exam was interpreted at Station ID: [id number]. NOTE: For mammograms, a report in lay terms will be sent to the patient. Approximately 15% of breast malignancies will not be visualized mammographically. In the management of a palpable breast mass, a negative mammogram must not discourage biopsy of a clinically suspicious lesion. Electronically Signed By: Evaristo valenzuela/lindsey:02/06/2023 08:53:22 letter sent: Normal Exam ACR BI-RADS Category 1: Negative [id number]
== END ==
PROVIDERS: PCP Physician Assistant; Referring Provider Physician Assistant; Visit Provider Physician Assistant
DX: Z12.31 Encounter for screening mammogram for malignant neoplasm of breast (principal)
CPT/HCPCS: 77063; 77067

== ENCOUNTER → 2023-05-07 10:58 | Outpatient (CLI) | payer MEDICARE, SELFPAY ==
[2023-05-07 19:45] LABS: Add Manual Diff / Slide Review NO; Basophils Absolute Auto 0 /uL (0-100); Basophils Percent Auto 0.7 % (0-2); Eosinophils Absolute Auto 100 /uL (0-450); Eosinophils Percent Auto 1.2 % (2-4); Hematocrit 40.2 % (36-46); Hemoglobin 13.9 g/dL (12.0-16.0); Lymphocytes Absolute Auto 1500 /uL (1100-4500); Lymphocytes Percent Auto 24.6 % (25-40); Mean Corpuscular HGB Conc 34.5 % (30-36); Mean Corpuscular Hemoglobin 33.3 PG (26-34); Mean Corpuscular Volume 96.5 fL (80-100); Monocytes Absolute Auto 600 /uL (0-900); Monocytes Percent Auto 9.7 % (3-14); Neutrophils Absolute Auto 3900 /uL (1500-7000); Neutrophils Percent Auto 63.8 % (50-75); Platelet Count 260 X10^3/uL (150-400); Red Blood Cell Count 4.17 X10^6/uL (4.0-5.2); White Blood Cell Count 6.1 X10^3/uL (4.5-11.0)
[2023-05-07 19:48] LABS: Alanine Aminotransferase 21 IU/L (<35); Albumin Globulin Ratio 1.5 (1.0-2.8); Alkaline Phosphatase 84 U/L (38-126); Aspartate Aminotransferase 33 IU/L (14-36); BUN Creatinine Ratio 17.9 (6-22); Bilirubin Total 0.6 mg/dL (0.2-1.3); Blood Urea Nitrogen 15 mg/dL (7-17); Calcium 9.4 mg/dL (8.4-10.2); Carbon Dioxide 29 mmol/L (22-32); Chloride 101 mmol/L (98-107); Estimated Glomerular Filt Rate > 60 mL/min (>60); Globulin 2.7 g/dL (1.7-4.1); Glucose 95 mg/dL (80-110); HEMOLYSIS < 15 (0-50); Potassium 4.5 mmol/L (3.4-5.1); Sodium 134 mmol/L (137-145); Total Protein 6.7 g/dL (6.3-8.2)
[2023-05-07 20:21] LABS: TSH w/ Reflex to FT4 0.88 uIU/mL (0.47-4.68)
== END ==
PROVIDERS: PCP Physician Assistant; Visit Provider Physician Assistant
DX: F41.9 Anxiety disorder, unspecified (principal); R79.89 Other specified abnormal findings of blood chemistry; Z79.899 Other long term (current) drug therapy
CPT/HCPCS: 80053; 84443; 85025

== ENCOUNTER → 2024-03-20 16:57 | Outpatient (CLI) | payer MEDICARE, SELFPAY ==
--- NOTE | 2024-03-20 16:57 | DI.MG.S_ITS ---
BILATERAL DIGITAL SCREENING MAMMOGRAM 3D/2D WITH CAD: 03/20/2024 CLINICAL: Routine screening. Comparison is made to exams dated: 02/05/2023 mammogram, 04/28/2020 mammogram, and 05/15/2018 mammogram - [facility]. Both breasts are heterogeneously dense, which may obscure small masses (category c / 51-75% glandular tissue). Current study was also evaluated with a Computer Aided Detection (CAD) system. No significant masses, calcifications, or other findings are seen in either breast. There has been no significant interval change. IMPRESSION: NEGATIVE There is no mammographic evidence of malignancy. A 1 year screening mammogram is recommended. Based on the Tyrer Cuzick model (a risk assessment model) the patient's lifetime risk is 4.4% and her 10 year risk is 3.6%. According to the ACR, ACS, and NCCN guidelines, an annual breast MRI exam along with mammogram is recommended if the patient's lifetime risk is 20% or greater. This exam was interpreted at Station ID: [id number]. NOTE: For mammograms, a report in lay terms will be sent to the patient. Approximately 15% of breast malignancies will not be visualized mammographically. In the management of a palpable breast mass, a negative mammogram must not discourage biopsy of a clinically suspicious lesion. Electronically Signed By: Ab leon/lindsey:03/21/2024 11:53:21 letter sent: Normal Exam ACR BI-RADS Category 1: Negative [id number]
== END ==
PROVIDERS: PCP Physician Assistant; Referring Provider Physician Assistant; Visit Provider Physician Assistant
DX: Z12.31 Encounter for screening mammogram for malignant neoplasm of breast (principal); R92.333 Mammographic heterogeneous density, bilateral breasts
CPT/HCPCS: 77063; 77067

== ENCOUNTER → 2024-08-18 10:08 | Outpatient (CLI) | payer MEDICARE, SELFPAY ==
[2024-08-18 19:18] LABS: Add Manual Diff / Slide Review NO; Basophils Absolute Auto 100 /uL (0-100); Basophils Percent Auto 0.9 % (0-2); Eosinophils Absolute Auto 200 /uL (0-450); Hematocrit 39.5 % (36-46); Hemoglobin 13.5 g/dL (12.0-16.0); Lymphocytes Absolute Auto 1500 /uL (1100-4500); Lymphocytes Percent Auto 24.6 % (25-40); Mean Corpuscular HGB Conc 34.2 % (30-36); Mean Corpuscular Hemoglobin 33.6 PG (26-34); Mean Corpuscular Volume 98.3 fL (80-100); Monocytes Absolute Auto 500 /uL (0-900); Neutrophils Absolute Auto 3700 /uL (1500-7000); Neutrophils Percent Auto 62.5 % (50-75); Platelet Count 266 X10^3/uL (150-400); Red Blood Cell Count 4.02 X10^6/uL (4.0-5.2); Red Cell Distribution Width 12.7 % (11.6-14.8); White Blood Cell Count 5.9 X10^3/uL (4.5-11.0)
[2024-08-18 19:20] LABS: HEMOLYSIS < 15 (0-50)
[2024-08-18 19:21] LABS: Alanine Aminotransferase 18 IU/L (<35); Albumin 3.7 g/dL (3.5-5.0); Albumin Globulin Ratio 1.3 (1.0-2.8); Alkaline Phosphatase 73 U/L (38-126); Aspartate Aminotransferase 49 IU/L (14-36); BUN Creatinine Ratio 25.3 (6-22); Bilirubin Total 0.6 mg/dL (0.2-1.3); Blood Urea Nitrogen 20 mg/dL (7-17); Calcium 9.2 mg/dL (8.4-10.2); Carbon Dioxide 28 mmol/L (22-32); Chloride 103 mmol/L (98-107); Cholesterol 198 mg/dL (140-199); Estimated Glomerular Filt Rate > 60 mL/min (>60); Globulin 2.9 g/dL (1.7-4.1); Glucose 83 mg/dL (80-110); HDL Cholesterol 83 mg/dL (40-60); LDL Cholesterol Calculated 106 mg/dL (<100); Sodium 133 mmol/L (137-145); Total Protein 6.6 g/dL (6.3-8.2); Triglycerides 43 mg/dL (35-150)
[2024-08-18 19:27] LABS: Potassium 4.2 mmol/L (3.4-5.1)
[2024-08-18 19:56] LABS: TSH w/ Reflex to FT4 0.74 uIU/mL (0.47-4.68)
[2024-08-20 17:08] LABS: Fecal Immunochemical Test Negative (Negative)
== END ==
PROVIDERS: PCP Physician Assistant; Visit Provider Physician Assistant
DX: E03.9 Hypothyroidism, unspecified (principal); F32.A Depression, unspecified; M85.80 Other specified disorders of bone density and structure, unspecified site; K21.9 Gastro-esophageal reflux disease without esophagitis; Z13.6 Encounter for screening for cardiovascular disorders; Z12.11 Encounter for screening for malignant neoplasm of colon; E78.00 Pure hypercholesterolemia, unspecified
CPT/HCPCS: 80053; 80061; 82274; 84443; 85025